=== PATIENT | female | born 1945 | race Caucasian/White ===

== ENCOUNTER → 2016-11-05 | Outpatient (CLI) | payer OTHER, MEDICARE | LOC: FIMAGING 13:56 | PROVIDERS: ATTEND Physician Assistant | DX: Z12.31 Encounter for screening mammogram for malignant neoplasm of breast (principal); Z13.820 Encounter for screening for osteoporosis; M85.80 Other specified disorders of bone density and structure, unspecified site; Z78.0 Asymptomatic menopausal state; Z82.62 Family history of osteoporosis; Z79.890 Hormone replacement therapy | CPT/HCPCS: G0202 ==

== ENCOUNTER → 2017-11-06 | Outpatient (CLI) | payer OTHER, MEDICARE | LOC: FIMAGING 15:06 | PROVIDERS: ATTEND Physician Assistant Medical | DX: Z12.31 Encounter for screening mammogram for malignant neoplasm of breast (principal) ==

== ENCOUNTER → 2018-06-16 | Outpatient (CLI) | payer OTHER, MEDICARE | LOC: FIMAGING 08:52 | PROVIDERS: ATTEND Orthopaedic Surgery | DX: Z01.818 Encounter for other preprocedural examination (principal); M16.0 Bilateral primary osteoarthritis of hip; M48.061 Spinal stenosis, lumbar region without neurogenic claudication; M51.26 Other intervertebral disc displacement, lumbar region; M46.96 Unspecified inflammatory spondylopathy, lumbar region ==

== ENCOUNTER 2018-07-15 05:45 | Inpatient (IN) | payer OTHER, MEDICARE ==
[2018-07-15] MEDS ORDERED: TRANEXAMIC ACID 1,000 MG in NS 100 ML IV ONE (06:00)
[2018-07-15] MEDS ORDERED: POVIDONE-IODINE 20 ML in SODIUM CL IRRIG SOLUTION 500 ML IRR ONE (06:00)
[2018-07-15] MEDS ORDERED: ROPIVACAINE 0.2% 80 MG, EPINEPHrine 0.2 MG, KETOROLAC TROMETHAMINE 30 MG in SYRINGE 0 ML IU ONE (06:00)
[2018-07-15] MEDS ORDERED: ceFAZolin 2 GM/DEXTROSE 100 ML IV ONE (06:11)
[2018-07-15] MEDS ORDERED: ACETAMINOPHEN 325 MG TAB PO ONE (06:11)
[2018-07-15] MEDS ORDERED: DEXAMETHASONE 4 MG/ML VIAL IVP ONE (06:11)
[2018-07-15] MEDS ORDERED: FAMOTIDINE 20 MG TAB PO ONE (06:11)
[2018-07-15] MEDS ORDERED: LIDOCAINE 1% 2 ML INJ ID PRN (06:12)
[2018-07-15] MEDS ORDERED: LR 1,000 ML IV ONE (06:12)
[2018-07-15] MEDS ORDERED: BUPIVACAINE/EPI 0.5% 30 ML SDV ONE (06:40)
--- NOTE | 2018-07-15 06:50 | PDHPUP ---
History & Physical Update H&P update statement: This history and physical update is based on an assessment of the patient which was completed after admission or registration (within 24 hours), but prior to the surgery/procedure. H&P update: H&P reviewed & patient examined, no change in patient's condition since H&P completed
[2018-07-15] MEDS ORDERED: MIDAZOLAM 2 MG/2 ML VIAL IVP ONE (06:57)
--- NOTE | 2018-07-15 06:58 | PDANEPAE ---
ANE Past Medical History - Cardiovascular History Hx Hypertension: No Hx Arrhythmias: No Hx Chest Pain: No Hx Coronary Artery / Peripheral Vascular Disease: No Hx CHF / Valvular Disease: No Hx Palpitations: No - Pulmonary History Hx COPD: No Hx Asthma/Reactive Airway Disease: No Hx Recent Upper Respiratory Infection: No Hx Oxygen in Use at Home: No Hx Sleep Apnea: No Sleep Apnea Screening Result - Last Documented: Negative - Neurologic History Hx Cerebrovascular Accident: No Hx Seizures: No Hx Dementia: No - Endocrine History Hx Diabetes: No - Renal History Hx Renal Disorders: No - Liver History Hx Hepatic Disorders: No - Neurological & Psychiatric Hx Hx Neurological and Psychiatric Disorders: No Neurological / Psychiatric History Comment: DISTANT ANXIETY/DEPRESSION - Cancer History Hx Cancer: Yes Cancer History Comment: SKIN - Congenital Disorder History Hx Congenital Disorders: No - GI History Hx Gastrointestinal Disorders: No - Other Health History Other Health History: NONE. FIXED BRIDGE - Chronic Pain History Chronic Pain: Yes (RIGHT ANKLE, RIGHT HIP) - Surgical History Prior Surgeries: 2016 CATERACT SURGERY ANE Review of Systems Review of Systems: - Exercise capacity Exercise capacity: >=4 METS METS (RN): 5 METS ANE Patient History - Allergies Allergies/Adverse Reactions: CATS Allergy (Intermediate, Uncoded 05/06/11 13:52) Other-Enter Comments POLLENS Allergy (Intermediate, Uncoded 05/06/11 13:52) Other-Enter Comments - Home Medications Home Medications: Estradiol [Estrace] 0.5 mg PO MWF 05/28/14 [Last Taken 07/12/18] Herbals/Supplements -Info Only 1 ea PO DAILY 07/09/18 [Last Taken 07/08/18] Hydroxyprogesterone 2.5mg 2.5 mg PO MWF 07/09/18 [Last Taken 07/12/18] Multivitamins [Multivitamin (*)] 1 tab PO DAILY 07/09/18 [Last Taken 07/08/18] [place]-3 Fatty Acids [Fish Oil 1000 mg (*)] 1,000 mg PO DAILY 07/09/18 [Last Taken 07/08/18] Sodium Cl Nasal [[place] (*)] 1 spray NS BID 07/09/18 [Last Taken 07/08/18] - NPO status NPO Since - Liquids (Date): 07/14/18 NPO Since - Liquids (Time): 22:00 NPO Since - Solids (Date): 07/14/18 NPO Since - Solids (Time): 22:00 - Smoking Hx Smoking Status: Former smoker - Family Anes Hx Family Hx Anesthesia Complications: NONE ANE Labs/Vital Signs - Vital Signs Blood Pressure: 133/83 Heart Rate: 73 Respiratory Rate: 18 O2 Sat (%): 95 Height: 165.1 cm Weight: 63.503 kg ANE Physical Exam - Airway Neck exam: FROM Mallampati Score: Class 1 Mouth exam: normal dental/mouth exam - Pulmonary Pulmonary: clear to auscultation - Cardiovascular Cardiovascular: regular rate and rhythym - ASA Status ASA Status: II ANE Anesthesia Plan Anesthesia Plan: spinal
[2018-07-15] MEDS ORDERED: MIDAZOLAM 2 MG/2 ML VIAL ONE (07:01)
[2018-07-15] MEDS ORDERED: PROPOFOL/EMULSION 500 MG/50 ML BOTTLE IV ONE (07:04)
[2018-07-15] MEDS ORDERED: BUPIVACAINE/DEXTROSE 7.5MG/ML 2 ML SPINAL AMP SP ONE (07:11)
[2018-07-15] MEDS ORDERED: PHENYLEPHRINE HCL 100 MCG/ML SYR ONE (08:44)
--- NOTE | 2018-07-15 08:47 | POSTANESTH ---
Post Anesthetic Evaluation Cardiovascular Status: Normal, Stable Respiratory Status: Normal, Stable Level of Consciousness/Mental Status: Can Participate in Eval Pain Control: Adequate, Prn Tx Ordered Nausea/Vomiting Control: Adequate, Prn Tx Ordered Complications Possibly Related to Anesthesia: None Noted
[2018-07-15] MEDS ORDERED: PROPOFOL 200 MG/20 ML VIAL ONE (08:49)
[2018-07-15] MEDS ORDERED: fentaNYL 100 MCG/2 ML INJ ONE (09:07)
[2018-07-15] MEDS ORDERED: ALBUTEROL 3 ML DEYVIAL IH PRN (09:16)
[2018-07-15] MEDS ORDERED: PHENYLEPHRINE HCL 100 MCG/ML SYR IVP PRN (09:16)
[2018-07-15] MEDS ORDERED: DIAZEPAM 5 MG/ML 1 ML SYR IVP PRN (09:16)
[2018-07-15] MEDS ORDERED: ONDANSETRON 4 MG/2 ML VIAL IVP PRN ×2 (09:16→09:56)
[2018-07-15] MEDS ORDERED: PROMETHAZINE HCL 25 MG/ML INJ IVP PRN ×2 (09:16→09:56)
[2018-07-15] MEDS ORDERED: HYDROmorphONE/DILAUDID 2 MG/ML INJ IVP PRN (09:16)
[2018-07-15] MEDS ORDERED: fentaNYL 100 MCG/2 ML INJ IVP PRN (09:16)
[2018-07-15] MEDS ORDERED: MEPERIDINE 25 MG/0.5 ML AMP IVP PRN (09:16)
[2018-07-15] MEDS ORDERED: NALOXONE HCL 0.4 MG/ML INJ IVP PRN (09:16)
[2018-07-15] MEDS ORDERED: LR 500 ML IV PRN (09:16)
[2018-07-15] MEDS ORDERED: METOCLOPRAMIDE 10 MG/2 ML VIAL IVP PRN (09:56)
[2018-07-15] MEDS ORDERED: TEMAZEPAM 15 MG CAP PO PRN (09:56)
[2018-07-15] MEDS ORDERED: DIPHENOXYLATE/ATROPINE LOMOTIL 1 TAB PO PRN (09:56)
[2018-07-15] MEDS ORDERED: BISACODYL 10 MG SUPP PR PRN (09:56)
[2018-07-15] MEDS ORDERED: ONDANSETRON DISINTEGRATING 4 MG TAB PO PRN (09:56)
[2018-07-15] MEDS ORDERED: POLYETHYLENE GLYCOL 3350 17 GM PKT PO PRN (09:56)
[2018-07-15] MEDS ORDERED: LACTULOSE 20 GM/30 ML UDCUP PO PRN (09:56)
[2018-07-15] MEDS ORDERED: diphenhydrAMINE 25 MG CAP PO PRN (09:56)
[2018-07-15] MEDS ORDERED: PROMETHAZINE HCL 25 MG SUPPR PR PRN (09:56)
[2018-07-15] MEDS ORDERED: MAGNESIUM HYDROXIDE 30 ML UDCUP PO PRN (09:56)
--- NOTE | 2018-07-15 09:56 | POSTOPPROG ---
Post Op Note Date of Operation: 07/15/18 Surgeon: Del Samayoa [employer] Dispatcher: INA Falcon Anesthesiologist: MD Sylvia Anesthesia: IV Sedation, Spinal Pre-op Diagnosis: Left hip OA Post-op Diagnosis: same Procedure: L ant BERNY with SORAYA Inf/Abcess present in the surg proc area at time of surgery?: No EBL: 100-500 (300) Drains: Hemovac
[2018-07-15] MEDS ORDERED: LR 1,000 ML IV SCH (10:00)
[2018-07-15] MEDS ORDERED: oxyCODONE IR 5 MG TAB ONE (10:26)
[2018-07-15] MEDS: oxyCODONE IR 5 MG TAB PO PRN ×2 (10:27→22:09)
[2018-07-15] MEDS ORDERED: MEPERIDINE 25 MG/0.5 ML AMP ONE (10:45)
[2018-07-15] MEDS: SODIUM CL NASAL 45 ML BTL NS SCH ×2 (11:09→20:42)
[2018-07-15] MEDS: MULTIVITAMINS 1 EACH TAB PO SCH (11:09)
--- NOTE | 2018-07-15 13:46 | PDMN ---
Medical Necessity Medical necessity: Pt meets INPT criteria per MD as of 07/15/18 and [facility]
[2018-07-15] MEDS: ACETAMINOPHEN 325 MG TAB PO SCH ×3 (15:33→23:57)
[2018-07-15] MEDS: ceFAZolin 2 GM/DEXTROSE 100 ML IV SCH ×2 (15:38→22:07)
[2018-07-15] MEDS: CYCLOBENZAPRINE 10 MG TAB PO PRN (16:58)
[2018-07-15] MEDS: FAMOTIDINE 20 MG TAB PO SCH (20:40)
[2018-07-15] MEDS: SENNOSIDES/DOCUSATE SODIUM TAB PO SCH (20:41)
[2018-07-15] MEDS: ASPIRIN 81 MG CHEWABLE TAB PO SCH (20:41)
[2018-07-16] MEDS: CYCLOBENZAPRINE 10 MG TAB PO PRN (04:39)
[2018-07-16] MEDS: ACETAMINOPHEN 325 MG TAB PO SCH ×2 (05:36→13:04)
[2018-07-16] MEDS: oxyCODONE IR 5 MG TAB PO PRN ×2 (05:38→13:03)
--- NOTE | 2018-07-16 07:40 | SOAPPROG ---
SOAP Progress Note Assessment/Plan: Assessment: Postop day 1 status post left anterior approach total hip arthroplasty Plan: Weight-bearing as tolerated with assistance, PT/OT DVT prophylaxis: SCDs Ashwin mims aspirin 81 mg twice daily Incentive spirometry 10 times per hour Disposition: Home today after physical therapy 07/16/18 07:38 Subjective: No acute events. Pain well controlled. Denies fevers chills vomiting chest pain shortness of breath numbness or tingling. Did admit to some mild nausea which has since past Objective: Vital Signs Temp Pulse Resp BP Pulse Ox 36.8 C 67 14 118/57 L 94 07/16/18 03:03 07/16/18 03:03 07/16/18 03:03 07/16/18 03:03 07/16/18 03:03 Laboratory Results 07/16/18 04:31 07/15/18 07/16/18 07/17/18 05:59 05:59 05:59 Intake Total 2650 Output Total 500 Balance 2150 No acute distress S Easy nonlabored breathing Left thigh: Dressing clean dry intact no erythema drainage or signs of infection Hemovac drain removed Thigh and calf compartments soft and compressible Motor intact EHL FHL tibialis anterior gastrocsoleus Sensation intact to light touch L4-S1 Palpable DP PT pulses - Time Spent With Patient Time Spent With Patient: 10 - Pending Discharge Pending Discharge Within 24 Hours: Yes Pending Discharge Date: 07/16/18 Pending Discharge Time: 11:00 ICD10 Worksheet Patient Problems: Problems Problem Status Onset Osteoarthritis of left hip Acute
[2018-07-16] MEDS: ASPIRIN 81 MG CHEWABLE TAB PO SCH (09:14)
[2018-07-16] MEDS: MULTIVITAMINS 1 EACH TAB PO SCH (09:14)
[2018-07-16] MEDS: FAMOTIDINE 20 MG TAB PO SCH (09:14)
[2018-07-16] MEDS: SENNOSIDES/DOCUSATE SODIUM TAB PO SCH (09:15)
[2018-07-16] MEDS: SODIUM CL NASAL 45 ML BTL NS SCH (09:18)
[2018-07-16 11:16] VITALS: BP 106/52
--- NOTE | 2018-07-16 13:37 | ASMTLACE ---
FREDE Length of stay for Answers: 2 days current admission Acuity / Level of Answers: Yes Care: Did the patient have an inpatient admission? Comorbidities - select Answers: Opioid dependence all that apply / Chronic pain # of Emergency department Answers: 0 visits in the last 6 months Social determinants Answers: Mental health diagnosis (anxiety, depression, pers onality disorders, etc.) Score: 12 Date Signed: 07/16/2018 01:36 PM Electronically Signed By:FRANCISCO Sarkar
--- NOTE | 2018-07-16 13:38 | ASMTCMCOM ---
CM Note CM Note Notes: Pt had planned OA of hip. PT rec home. No CM d/c needs identified. Date Signed: 07/16/2018 01:37 PM Electronically Signed By:FRANCISCO Sarkar
--- NOTE | 2018-07-17 10:34 | GOP ---
DATE OF OPERATION: 07/15/2018 SURGEON: Del Samayoa MD [employer]: Louis Falcon CFA. [employer] was required for the procedure due to the comple xity of the case and the patient's condition, for positioning, prepping and draping, retraction, clos ure. ANESTHESIA: Spinal and IV sedation. PREOPERATIVE DIAGNOSIS: Left hip osteoarthritis. POSTOPERATIVE DIAGNOSIS: Left hip osteoarthritis. PROCEDURE PERFORMED: Left hip anterior approach hip replacement with MAKOplasty robotic guidance, fl uoroscopic supervision greater than 1 hour. FINDINGS: SPECIMENS: Femoral head. ESTIMATED BLOOD LOSS: 300 cc. INDICATIONS: Patient has severe hip osteoarthritis that failed to improve with conservative measures , significantly affecting activities of daily living including walking. The patient elected to proce ed with anterior approach hip replacement using MAKOplasty robotic guidance after extensive discussio n of all possible approaches, as well as the risks, benefits, pros, cons, expected recovery and progn osis. The patient verbalized understanding of the risks and benefits of the procedure, and signed th e informed consent prior to the procedure. DESCRIPTION OF PROCEDURE: The patient was seen in the holding area and operative consent and extremi ty were signed. The patient was taken to the operating room. After smooth induction of spinal anest hesia and sedation, patient was placed in supine position on the operating table with the arch table extension. Hip and contralateral iliac crest were prepped and draped in usual sterile fashion. The operative site was confirmed by signature. Operative time-out performed. Allergies reviewed. Antib iotics and TXA were administered. Three pins were placed in the contralateral iliac crest and pelvic array was fixed. It was well visu alized by the robot. The desired incision for the anterior approach on the hip was infiltrated with 0.25% Marcaine with epinephrine. This incision was made with a 10 blade, carried through the subcuta neous tissue to identify the TFL fascia. This was incised in line with the incision, and the TFL was retracted laterally. The lateral femoral circumflex vessels were coagulated with Aquamantys and the deep TFL fascia was incised, and the vastus lateralis was clearly exposed. Pericapsular fat was exc ised and a T-shaped capsulotomy was performed. The capsule was preserved for later closure. A femoral neck cut was then performed based on pre templated calculations and imaging. The femoral h ead was excised with a corkscrew. The acetabulum was exposed in standard fashion. The labrum, pulvinar and soft tissue were sharply ex cised. The pelvic checkpoint was placed in the AIIS. The acetabular registration was performed usin g the robot. Reaming was then performed using the robot, to the desired size. The cup was impacted in place again with robotic guidance system, and good fixation was achieved. The cup was irrigated a nd dried, and the liner was impacted into place, achieving good locking within the cup. The femur was then exposed in standard fashion. The femur was broached to the desired size. Trial n hannah and head were attached, and the hip was relocated. The position of all components was confirmed at this point fluoroscopically. The foot was externally rotated 90 degrees, extended to the floor, a nd anterior stability was confirmed. The hip was then dislocated and femoral trial components were r emoved. The stem was impacted into place. The trunnion was cleaned and dried, and the head was impa cted down into the trunnion. The wound was copiously irrigated, including the cup, with pulse lavage . The hip was once again relocated. Component placement was confirmed with fluoroscopy. All checkpoints were removed. The pelvic array was also removed. The wound was copiously irrigated with sterile solution. Dilute Betadine solution was then irrigated into the wound and allowed to soa k for 3 minutes before being irrigated out. The joint cocktail was injected in the soft tissue. The capsule and indirect head of the rectus femoris were repaired with #1 Vicryl. The drain was placed exiting distally and laterally from deep to TFL. The wound was then closed in layers with 0 Quill in a TFL fascia and the deep subcutaneous fat, 3-0 Versalok in the dermis. The wound was then dressed with sterile dressing. The patient was safely awakened and taken to recovery room in a stable condit ion. All critical portions of the procedure were performed by myself, Dr. Samayoa. This operative note was c reated by myself, Dr. Samayoa, was immediately available for emergency cross-coverage at all times. DRAINS: Hemovac x1. COMPLICATIONS: None. IMPLANTS: Include a Trident 2 hemispherical acetabular shell size 52, a 0 degree 36 mm polyethylene liner; Accolade 2, size 6 stem, 127 degree offset; 36 mm, +0 head. /[id number]/MODL
--- NOTE | 2018-07-17 12:10 | GDS ---
ADMITTING DIAGNOSIS: Left hip osteoarthritis. DISCHARGE DIAGNOSIS: Left hip osteoarthritis. NAME OF PROCEDURE: Left hip anterior approach total hip arthroplasty with MAKOplasty [place] HOSPITAL COURSE: The patient was admitted on the above date and underwent the above procedure withou t complication. Tolerated it well. Pain was well controlled postoperatively. She was given antibio tics for perioperative prophylaxis as well as aspirin 81 mg b.i.d., MARILIN hose and SCDs for DVT prophyl axis. She ambulated on postop day 0 and worked with Physical Therapy on postop day 1; she was cleare d for discharge on the morning of postoperative day 1. DISCHARGE DISPOSITION: Home. CONDITION UPON DISCHARGE: Stable. /[id number]/MODL
== END 2018-07-16 15:49 | disposition home or self-care (01) | DRG 470 ==
LOC: F3N 05:45
PROVIDERS: ADMIT Orthopaedic Surgery; ATTEND Orthopaedic Surgery
PROC: 8E0Y0CZ Robotic Assisted Procedure of Lower Extremity, Open Approach (ICD-10-PCS; principal; 2018-07-15 07:15)
PROC: 0SRB04Z Replacement of Left Hip Joint with Ceramic on Polyethylene Synthetic Substitute, Open Approach (ICD-10-PCS; principal; 2018-07-15 07:15)
DX: M16.12 Unilateral primary osteoarthritis, left hip (principal)
CPT/HCPCS: 97116-GP; 97161-GP; 97165-GO; 97530-GP; C1713; J0171; J0690; J1100; J1885; J2175; J2250; J2370; J2704; J2795; J3010

== ENCOUNTER → 2018-11-08 | Outpatient (CLI) | payer OTHER, MEDICARE | LOC: BMCIMAGING 12:28 | PROVIDERS: ATTEND Physician Assistant Medical | DX: Z12.31 Encounter for screening mammogram for malignant neoplasm of breast (principal) ==

== ENCOUNTER → 2018-11-16 | Outpatient (CLI) | payer OTHER, MEDICARE | LOC: BMCIMAGING 11:13 | PROVIDERS: ATTEND Physician Assistant | DX: Z13.820 Encounter for screening for osteoporosis (principal); M85.89 Other specified disorders of bone density and structure, multiple sites; Z78.0 Asymptomatic menopausal state; Z79.890 Hormone replacement therapy; Z87.311 Personal history of (healed) other pathological fracture ==